=== PATIENT | male | born 1970 | race Caucasian/White ===

== ENCOUNTER 2025-08-22 08:36 | Outpatient (CLI) | payer BC | END 2025-08-22 08:37 | disposition home or self-care (01) | LOC: ULT 08:36 | PROVIDERS: ATTEND Otolaryngology Plastic Surgery within the Head & Neck | DX: E04.2 Nontoxic multinodular goiter (principal) | CPT/HCPCS: 76536 ==

== ENCOUNTER 2025-09-28 12:19 | Day surgery (SDC) | payer BC ==
[2025-09-28] MEDS ORDERED: Lidocaine 1% PF 5 ML VIAL ONE (12:47)
[2025-09-28] MEDS ORDERED: Sodium Bicarbonate 2.5 MEQ/5 ML SDV ONE (12:47)
== END 2025-09-28 15:00 | disposition home or self-care (01) ==
LOC: ULT 12:19
PROVIDERS: ATTEND Otolaryngology Plastic Surgery within the Head & Neck
PROC: 0G9H3ZX Drainage of Right Thyroid Gland Lobe, Percutaneous Approach, Diagnostic (ICD-10-PCS; principal; 2025-09-28)
DX: E04.2 Nontoxic multinodular goiter (principal); I10 Essential (primary) hypertension; E78.00 Pure hypercholesterolemia, unspecified; Z95.1 Presence of aortocoronary bypass graft; Z79.82 Long term (current) use of aspirin; Z79.899 Other long term (current) drug therapy
CPT/HCPCS: 10005; 10006; 88173